=== PATIENT | female | born 1940 | race Caucasian/White ===

== ENCOUNTER → 2018-01-09 | Outpatient (REF) | payer MEDICARE, OTHER ==
[2018-01-09 20:19] LABS: BACTERIA, URINE LARGE AMOUNT; MUCUS, URINE SMALL AMOUNT (NEGATIVE); RBC, URINE 0-1 /hpf (0-3); RENAL EPITHELIAL CELLS, URINE SMALL AMOUNT /hpf
[2018-01-09 20:20] LABS: TRANSITIONAL EPI CELLS, URINE SMALL AMOUNT /hpf
[2018-01-09 20:22] LABS: SQUAMOUS EPITHELIAL CELL URINE MOD AMOUNT /hpf (SMALL AMT)
[2018-01-09 20:24] LABS: HYALINE CAST, URINE NONE SEEN /lpf (0-1); MICROSCOPIC EXAM PERFORMED
== END ==
LOC: M SMT 17:06
DX: R32 Unspecified urinary incontinence (principal)
CPT/HCPCS: 81015

== ENCOUNTER 2019-02-12 17:53 | Emergency (ER) | payer MEDICARE, OTHER ==
[~2019-02-12] VITALS: Ht 165.1 cm; Wt 86.4 kg
[~2019-02-12 17:53] MED LIST: ACET500C PO; ACET500T15 PO; AMLO10TA PO; BETO0.25 OD; BIMA01SOL OU; BRIM1OPD OS; CRES20TA2 PO; DORZ2SOL5 OS; DRIS50003 PO; FLEEENE4 PR; FLUT1SPR2; FOSA70TA PO; GLUC1KIT SQ; GLUC4CHW19 PO; GLYB-147 PO; IBUP200T45 PO; INSUDET SC; INSUH10VL SC; INSUH10VL SQ; INSULANT SC; LEVO25TA5 PO; LEVO88TA3 PO; MILK120011 PO; MYLASUS16 PO; NYST1POW9 TOP; SENO8.6T5 PO; SYST1SOL OU; TYLE650T30 PO
[2019-02-12] MEDS ORDERED: POTA10TA14 PO (18:47)
[2019-02-12] MEDS ORDERED: ATOR40TA75 PO (18:47)
[2019-02-12] MEDS ORDERED: TRAZ-252 PO (18:47)
[2019-02-12] MEDS ORDERED: LANTINJ4 SC (18:47)
[2019-02-12] MEDS ORDERED: TIMO0.5S39 OU (18:47)
[2019-02-12] MEDS ORDERED: METF500T13 PO (18:47)
[2019-02-12] MEDS ORDERED: FURO20TA2 PO (18:47)
[2019-02-12] MEDS ORDERED: COLA100C5 PO (18:47)
[2019-02-12] MEDS ORDERED: LOPE2TAB11 PO (18:47)
[2019-02-12] MEDS ORDERED: INSULANT SC (18:47)
[2019-02-12] MEDS ORDERED: HYDR-643 PO (18:47)
[2019-02-12] MEDS ORDERED: CITA10TA6 PO (18:47)
[2019-02-12] MEDS ORDERED: OXYB5TAB PO (18:47)
[2019-02-12 20:42] LABS: BASO # 0.1 10^3/uL (0.0-0.2); BASO % 0.5 % (0.0-1.0); EOS # 0.2 10^3/uL (0.0-0.50); EOS % 2.4 % (0.0-3.0); HEMATOCRIT 39.6 % (36.0-47.0); HEMOGLOBIN 12.9 g/dl (12.0-15.5); LYMPH # 2.6 10^3/uL (1.5-4.5); LYMPH % 27.5 % (24.0-44.0); MEAN CORPUSCULAR HEMOGLOBIN 28.3 pg (27.0-33.0); MEAN CORPUSCULAR HGB CONC 32.6 g/dl (32.0-36.5); MEAN CORPUSCULAR VOLUME 86.8 fl (80.0-96.0); MONO # 0.5 10^3/uL (0.0-0.8); MONO % 5.6 % (0.0-5.0); NEUTROPHILS % 63.7 % (36.0-66.0); PLATELET COUNT, AUTOMATED 233 10^3/uL (150-450); RED BLOOD COUNT 4.56 10^6/uL (4.00-5.40); WHITE BLOOD COUNT 9.5 10^3/uL (4.0-10.0)
[2019-02-12] MEDS ORDERED: NS 1,000 ML IV ONE (20:45)
[2019-02-12 20:52] LABS: INR 1.95; PROTHROMBIN TIME 22.6 SECONDS (12.1-14.4)
[2019-02-12 20:53] LABS: PARTIAL THROMBOPLASTIN TIME 45.2 SECONDS (25.4-37.6)
[2019-02-12 21:02] LABS: ALBUMIN 3.3 GM/DL (3.2-5.2); BILIRUBIN,DIRECT 0.2 MG/DL (0.0-0.2); BILIRUBIN,TOTAL 0.7 MG/DL (0.2-1.0); CALCIUM LEVEL 8.3 MG/DL (8.8-10.2); CREATININE FOR GFR 1.44 MG/DL (0.55-1.30); GLOMERULAR FILTRATION RATE 37.6 (>39); MB/CK RELATIVE INDEX 2.44 (< OR =4); POTASSIUM SERUM 3.9 MEQ/L (3.5-5.1); TOTAL PROTEIN 6.9 GM/DL (6.4-8.2); TROPONIN I 0.03 NG/ML (< 0.10)
[2019-02-12] MEDS ORDERED: ISOVUE-370 76% 100ML VIAL (Q9967) As Ordered ONE (21:10)
--- NOTE | 2019-02-12 22:17 | REP ---
Clinical: Acute chest pain. Technique: Axial contrast enhanced images from the thoracic inlet to the upper abdomen using 100 ml Isovue 370 intravenous contrast material with coronal and sagittal re-formations. Findings: Satisfactory enhancement of the pulmonary vasculature is achieved and no filling defects are identified to suggest pulmonary embolus. [id number] bilateral pleural effusions with passive atelectasis to the right and left lower lobes as well as scattered ill-defined linear atelectasis/consolidations in the left lower lobe and lingula. Mild cardiomegaly. No pericardial effusion. Thoracic aorta without aneurysm or dissection. No significant adenopathy. No pneumothorax. Musculoskeletal structures without focal osseous abnormality. Impression: 1. No evidence for pulmonary embolus. 2. Moderate/large bilateral pleural effusions (left greater than right) with scattered atelectasis/ill-defined consolidations involving lower lobes and lingula. Electronically Signed by Jeff Dong MD 02/12/2019 10:08 P
--- NOTE | 2019-02-12 22:21 | REP ---
Clinical: Abdominal pain. Technique: Axial contrast enhanced images from the lung bases to the pubic symphysis using 100 ml Isovue 370 intravenous contrast material with coronal and sagittal re-formations. Findings: Lrzwtnyl-[id number]-[id number] bilateral pleural effusions (left greater than right) bibasilar atelectasis/partial collapse. Liver demonstrates hypodense and hyperdense lesions with irregular peripheral enhancement suggesting multiple hemangiomas. Spleen, pancreas, bilateral adrenal glands are normal. Cholelithiasis suggested without acute cholecystitis. Kidneys demonstrate age-related cortical atrophic change without hydronephrosis. The enteric system is without obstruction or acute inflammatory process. Pelvis demonstrates normal bladder and age-appropriate uterus/adnexa. No ascites. No free air. No adenopathy. Abdominal aorta without aneurysm or dissection. 4.3 cm fat containing periumbilical hernia identified. Musculoskeletal structures demonstrate degenerative changes without focal osseous abnormality. Impression: 1. No obvious acute abdominopelvic pathology appreciated. 2. 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 Consider outpatient follow-up ultrasound examination. 3. Cholelithiasis. 4. 4.3 cm fat containing periumbilical hernia. 5. Bilateral pleural effusions and bibasilar atelectasis/partial collapse (left greater than right). Electronically Signed by Jeff Dong MD 02/12/2019 10:13 P
[2019-02-12 23:25] VITALS: BP 116/64
--- NOTE | 2019-02-13 06:09 | ECGEPIP ---
[facility] - ED Test Date: 2019-02-12 Pat Name: LONNIE BERKOWITZ Department: Room: - Gender: Female Trash Man: ADELINERACH : 1940 Requested By: REED Villela Order Number: [id number] Reading MD: David Pascal Measurements Intervals [place] Rate: 88 P: 56 AL: 126 QRS: 56 QRSD: 100 T: QT: 416 QTc: 504 Interpretive Statements SINUS RHYTHM POSSIBLE LEFT ATRIAL ENLARGEMENT POSSIBLE PRIOR INFERIOR INFARCT NSTTW ABNORMALITIES Electronically Signed on 02-13-2019 6:09:14 EDT by David Pascal
--- NOTE | 2019-02-14 07:59 | ED PDOC ---
Post-Departure Follow-Up dr herr faxed formal report of ct abd/p , cta chest for fu.Nabila Aviles MD Feb 14, 2019 07:59
== END 2019-02-12 23:32 | disposition home or self-care (01) ==
LOC: M ED 17:53
DX: J90 Pleural effusion, not elsewhere classified (principal); K74.60 Unspecified cirrhosis of liver; E11.9 Type 2 diabetes mellitus without complications; I10 Essential (primary) hypertension; J44.9 Chronic obstructive pulmonary disease, unspecified; F41.9 Anxiety disorder, unspecified; E78.00 Pure hypercholesterolemia, unspecified; E03.9 Hypothyroidism, unspecified; Z79.899 Other long term (current) drug therapy; Z79.4 Long term (current) use of insulin
CPT/HCPCS: 71275; 74177; 80048; 80076; 82550; 82553; 83690; 84484; 85025; 85610; 85730; 87040; 93005; 93041; 96360; 96361; 99285; Q9967

== ENCOUNTER → 2019-03-04 | Outpatient (CLI) | payer MEDICARE, OTHER ==
[~2019-03-04] MED LIST changes: +ATOR40TA75 PO; +CITA10TA6 PO; +COLA100C5 PO; +FURO20TA2 PO; +HYDR-643 PO; +LANTINJ4 SC; +LOPE2TAB11 PO; +METF500T13 PO; +OXYB5TAB PO; +POTA10TA14 PO; +TIMO0.5S39 OU; +TRAZ-252 PO
--- NOTE | 2019-03-04 12:12 | REP ---
PA and lateral chest: Comparison is 02/05/2015. There is a left pleural effusion as an interval change. There is minor atelectasis inferiorly in the left lung above the effusion. The right lung is clear. Cardiac size is upper normal. The amber and mediastinum are unremarkable. The tip of a metallic yumiko is identified in the visualized portion of the right humeral head and neck. Impression: New left pleural effusion. Metallic yumiko in the right proximal humerus. Electronically Signed by Scottie Arroyo MD 03/04/2019 12:04 P
[2019-03-04 17:24] LABS: ALBUMIN 3.7 GM/DL (3.2-5.2); BILIRUBIN,TOTAL 0.6 MG/DL (0.2-1.0); CALCIUM LEVEL 8.8 MG/DL (8.8-10.2); CREATININE FOR GFR 1.64 MG/DL (0.55-1.30); GLOMERULAR FILTRATION RATE 32.3 (>39); POTASSIUM SERUM 4.8 MEQ/L (3.5-5.1); THYROID STIMULATING HORMONE 1.77 uIU/ML (0.358-3.740); TOTAL PROTEIN 7.2 GM/DL (6.4-8.2)
[2019-03-04 17:36] LABS: HEMATOCRIT 38.3 % (36.0-47.0); HEMOGLOBIN 12.1 g/dl (12.0-15.5); MEAN CORPUSCULAR HEMOGLOBIN 27.5 pg (27.0-33.0); MEAN CORPUSCULAR HGB CONC 31.6 g/dl (32.0-36.5); PLATELET COUNT, AUTOMATED 283 10^3/uL (150-450); WHITE BLOOD COUNT 9.8 10^3/uL (4.0-10.0)
== END ==
LOC: M WUC 11:09
PROVIDERS: ATTEND Internal Medicine
DX: E11.9 Type 2 diabetes mellitus without complications (principal); E03.9 Hypothyroidism, unspecified; I50.22 Chronic systolic (congestive) heart failure; J90 Pleural effusion, not elsewhere classified

== ENCOUNTER → 2019-06-15 | Outpatient (CLI) | payer MEDICARE, OTHER ==
[~2019-06-15] MED LIST changes: -LOPE2TAB11 PO; +LOPE2TAB12 PO; -OXYB5TAB PO; +OXYB5TAB2 PO
[2019-06-15 20:13] LABS: HEMATOCRIT 35.2 % (36.0-47.0); HEMOGLOBIN 10.9 g/dl (12.0-15.5); MEAN CORPUSCULAR HEMOGLOBIN 27.2 pg (27.0-33.0); MEAN CORPUSCULAR VOLUME 87.8 fl (80.0-96.0); PLATELET COUNT, AUTOMATED 364 10^3/uL (150-450); RED BLOOD COUNT 4.01 10^6/uL (4.00-5.40); WHITE BLOOD COUNT 8.1 10^3/uL (4.0-10.0)
[2019-06-15 20:30] LABS: ALBUMIN 2.8 GM/DL (3.2-5.2); BILIRUBIN,TOTAL 0.6 MG/DL (0.2-1.0); CREATININE FOR GFR 1.31 MG/DL (0.55-1.30); GLOMERULAR FILTRATION RATE 41.9 (>39); POTASSIUM SERUM 4.7 MEQ/L (3.5-5.1); THYROID STIMULATING HORMONE 0.126 uIU/ML (0.358-3.740); TOTAL PROTEIN 6.2 GM/DL (6.4-8.2)
== END ==
LOC: M WUC 16:28
PROVIDERS: ATTEND Internal Medicine
DX: R53.83 Other fatigue (principal); E03.9 Hypothyroidism, unspecified; E11.9 Type 2 diabetes mellitus without complications; Z79.899 Other long term (current) drug therapy; I35.0 Nonrheumatic aortic (valve) stenosis

== ENCOUNTER → 2019-06-15 | Outpatient (CLI) | payer MEDICARE, OTHER ==
[2019-06-15 20:18] LABS: CALCIUM LEVEL 8.3 MG/DL (8.8-10.2); CREATININE FOR GFR 1.3 MG/DL (0.55-1.30); GLOMERULAR FILTRATION RATE 42.3 (>39); POTASSIUM SERUM 4.7 MEQ/L (3.5-5.1)
== END ==
LOC: M WUC 16:17
PROVIDERS: ATTEND Nurse Practitioner Family
DX: I35.0 Nonrheumatic aortic (valve) stenosis (principal)

== ENCOUNTER → 2019-06-30 | Outpatient (CLI) | payer MEDICARE, OTHER ==
--- NOTE | 2019-07-01 12:58 | REP ---
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 Comparisons: Comparison CT study February 12, 2019. Comparison CT chest study June 16, 2019. TECHNIQUE: 59 minutes following the intravenous injection of a 7.44 mCi dose of F-18 FDG, three-dimensional PET scintigraphy is acquired from the skull base to the proximal thighs. Triplanar noncontrast CT scanning is acquired through the same anatomic range for attenuation correction, and image registration with scan parameters optimized to minimize radiation exposure to the patient. PET scintigraphy and CT datasets were fused and displayed on a workstation with multiplanar and projection display capability. PET/CT Findings: Head and neck soft tissues are unremarkable. There are small to moderate bilateral pleural effusions, left greater than right. Extensive coronary artery vascular calcifications noted. No abnormal hypermetabolic uptake is seen within the thorax. No hypermetabolic pleural or maritza uptake is seen. There is some atelectasis in each lung base. There is linear discoid atelectasis in the left upper lobe without hypermetabolic uptake. No abnormal hypermetabolic uptake is seen within the liver. The accompanying noncontrast CT study shows a low density 3.5 cm lesion in the right lobe which does not show hypermetabolic uptake, maximum standard uptake value is less than background normal liver uptake 3.51. Maximum standard uptake value is 3.78 at the site of the smaller low density lesion in the dome of the right lobe. The lesion in the pericaval region of the right lobe of the liver is similarly not metabolically active, SUV 3.58. No hypermetabolic abnormal hepatic uptake. There is no abnormal uptake in the pancreas on PET scintigraphy. There is a portacaval lymph node which is not metabolically active, 0.9 cm in short axis dimension unchanged from February 12, 2019. No retroperitoneal adenopathy or hypermetabolic uptake is seen. There is a ventral hernia. No abnormal pelvic uptake is seen. Impression: There is no abnormal hepatic or pancreatic hypermetabolic uptake. No abnormal maritza uptake is seen. Moderate bilateral pleural effusions are noted. Electronically Signed by Jeremy Hu MD 07/01/2019 01:49 P
== END ==
LOC: M PLARAD 15:06
PROVIDERS: ATTEND Family Medicine
DX: D35.6 Benign neoplasm of aortic body and other paraganglia (principal); C25.9 Malignant neoplasm of pancreas, unspecified
CPT/HCPCS: 78815; A9552

== ENCOUNTER → 2019-08-03 | Outpatient (CLI) | payer MEDICARE, OTHER ==
[2019-08-03 18:01] LABS: CREATININE FOR GFR 1.37 MG/DL (0.55-1.30); GLOMERULAR FILTRATION RATE 39.8 (>39)
== END ==
LOC: M WUC 14:37
PROVIDERS: ATTEND Internal Medicine
DX: K76.9 Liver disease, unspecified (principal); R19.09 Other intra-abdominal and pelvic swelling, mass and lump

== ENCOUNTER → 2019-08-03 | Outpatient (CLI) | payer MEDICARE, OTHER ==
[2019-08-03 17:59] LABS: CALCIUM LEVEL 8.8 MG/DL (8.8-10.2); CREATININE FOR GFR 1.36 MG/DL (0.55-1.30); DIGOXIN LEVEL 1.1 NG/ML (0.5-2.0); GLOMERULAR FILTRATION RATE 40.1 (>39); POTASSIUM SERUM 4.3 MEQ/L (3.5-5.1)
== END ==
LOC: M WUC 14:32
PROVIDERS: ATTEND Internal Medicine
DX: Z79.899 Other long term (current) drug therapy (principal); K76.9 Liver disease, unspecified; R19.09 Other intra-abdominal and pelvic swelling, mass and lump

== ENCOUNTER → 2019-08-04 | Outpatient (CLI) | payer MEDICARE, OTHER ==
[~2019-08-04] MED LIST changes: +ISOVUE-370 76% 100ML VIAL (Q9967) As Ordered ONE
--- NOTE | 2019-08-04 12:35 | REP ---
CT ABDOMEN AND PELVIS WITHOUT AND WITH IV CONTRAST: WITHOUT ORAL CONTRAST. HISTORY: Liver disease. Swelling. CT CONTRAST DOSE: 100 mL of intravenous Isovue-370 is administered. COMPARISON: CT study February 12, 2019. Comparison PET-CT, June 30, 2019. Comparison chest CT, February 05, 2015. CT FINDINGS: Digital preliminary drawing box tender radiograph is unremarkable. Normal bowel gas pattern is seen. There are small to moderate bilateral pleural effusions, left larger than right again noted. These are similar to the February 12, 2019 prior effusions. Multiple low-density liver lesions are observed. These are most conspicuous on the precontrast study. In the right lobe, there are 3.7 and 4.0 cm low density lesions. There are two different 1.1 cm nodules in the left lobe. There is a 2.1 cm right lobe nodule high at the dome of the diaphragm. These demonstrate peripheral vascular enhancement pattern and may be hemangiomas. The CT study from February 05, 2015 demonstrates large left and right lobe lesions which have regressed somewhat since the 2014 study. The left lobe lesion, which was quite large in 2014, is not seen. No splenic lesion is appreciated. There is no evidence of ascites or adrenal lesion. No pancreatic abnormality is noted. There is a fluid-fluid level in the gallbladder consistent with gravel-like calculi or mineralized sludge in the gallbladder. The kidneys enhance symmetrically and are morphologically intact. No retroperitoneal mass or adenopathy is seen. There is a periumbilical ventral hernia transmitting abdominal fat. Small and large bowel loops are unremarkable. IMPRESSION: 1. Bilateral pleural effusions, left greater than right. 2. Multiple low-density hypervascular liver lesions which may be hemangiomas. The three largest of these have regressed since the 2014 prior study. 3. Periumbilical ventral hernia transmitting abdominal fat. Electronically Signed by Jeremy Hu MD 08/04/2019 03:35 P
== END ==
LOC: M RAD 09:31
PROVIDERS: ATTEND Internal Medicine
DX: R19.09 Other intra-abdominal and pelvic swelling, mass and lump (principal); K76.9 Liver disease, unspecified
CPT/HCPCS: 74170; Q9967

== ENCOUNTER → 2019-11-17 | Outpatient (REF) | payer MEDICARE, OTHER ==
[~2019-11-17] MED LIST changes: -ISOVUE-370 76% 100ML VIAL (Q9967) As Ordered ONE; +OXYB-54 PO; -OXYB5TAB2 PO
== END ==
LOC: M LAB REF 16:00
PROVIDERS: ATTEND Nurse Practitioner Family
DX: R30.0 Dysuria (principal)

== ENCOUNTER → 2019-11-23 | Outpatient (CLI) | payer MEDICARE, OTHER ==
[2019-11-23 17:31] LABS: ALBUMIN 3.6 GM/DL (3.2-5.2); CALCIUM LEVEL 9.3 MG/DL (8.8-10.2); CREATININE FOR GFR 1.49 MG/DL (0.55-1.30); GLOMERULAR FILTRATION RATE 36.1 (>39); MAGNESIUM LEVEL 2.8 MG/DL (1.8-2.4); POTASSIUM SERUM 4.7 MEQ/L (3.5-5.1)
== END ==
LOC: M WUC 10:45
PROVIDERS: ATTEND Internal Medicine Cardiovascular Disease
DX: I50.42 Chronic combined systolic (congestive) and diastolic (congestive) heart failure (principal)

== ENCOUNTER → 2019-12-01 | Outpatient (REF) | payer MEDICARE, OTHER | LOC: M LAB REF 16:23 | PROVIDERS: ATTEND Internal Medicine | DX: N39.0 Urinary tract infection, site not specified (principal) ==

== ENCOUNTER → 2020-02-11 | Outpatient (CLI) | payer MEDICARE, OTHER ==
[2020-02-11 20:10] LABS: BASO % 0.5 % (0.0-1.0); EOS # 0.2 10^3/uL (0.0-0.5); EOS % 2.5 % (0.0-3.0); HEMOGLOBIN 12.1 g/dl (12.0-15.5); MEAN CORPUSCULAR HEMOGLOBIN 29.4 pg (27.0-33.0); MEAN CORPUSCULAR HGB CONC 33.6 g/dl (32.0-36.5); MEAN CORPUSCULAR VOLUME 87.4 fl (80.0-96.0); MONO # 0.5 10^3/uL (0.0-0.8); MONO % 5.8 % (0.0-5.0); NEUTROPHILS # 5.8 10^3/uL (1.5-8.5); PLATELET COUNT, AUTOMATED 199 10^3/uL (150-450); RED BLOOD COUNT 4.12 10^6/uL (4.00-5.40); WHITE BLOOD COUNT 8.5 10^3/uL (4.0-10.0)
[2020-02-11 21:01] LABS: ALBUMIN 3.4 GM/DL (3.2-5.2); BILIRUBIN,TOTAL 0.3 MG/DL (0.2-1.0); CALCIUM LEVEL 8.8 MG/DL (8.8-10.2); CREATININE FOR GFR 1.6 MG/DL (0.55-1.30); DIGOXIN LEVEL 1.5 NG/ML (0.5-2.0); GLOMERULAR FILTRATION RATE 33.2 (>39); THYROID STIMULATING HORMONE 0.369 uIU/ML (0.358-3.740); TOTAL PROTEIN 6.6 GM/DL (6.4-8.2)
[2020-02-11 21:38] LABS: HEMOGLOBIN A1c 9.6 %
== END ==
LOC: M WUC 15:10
PROVIDERS: ATTEND Internal Medicine
DX: E11.9 Type 2 diabetes mellitus without complications (principal); Z79.899 Other long term (current) drug therapy

== ENCOUNTER → 2020-05-02 | Outpatient (REF) | payer MEDICARE, OTHER ==
[2020-06-18 21:11] LABS: BASO % 0.4 % (0.0-1.0); EOS # 0.2 10^3/uL (0.0-0.5); EOS % 2.3 % (0.0-3.0); HEMATOCRIT 34.5 % (36.0-47.0); HEMOGLOBIN 11.2 g/dl (12.0-15.5); LYMPH # 1.9 10^3/uL (1.5-5.0); LYMPH % 19.3 % (24.0-44.0); MEAN CORPUSCULAR HEMOGLOBIN 29.3 pg (27.0-33.0); MEAN CORPUSCULAR HGB CONC 32.5 g/dl (32.0-36.5); MEAN CORPUSCULAR VOLUME 90.3 fl (80.0-96.0); MONO # 0.6 10^3/uL (0.0-0.8); NEUTROPHILS # 6.9 10^3/uL (1.5-8.5); NEUTROPHILS % 71.7 % (36.0-66.0); PLATELET COUNT, AUTOMATED 172 10^3/uL (150-450); RED BLOOD COUNT 3.82 10^6/uL (4.00-5.40); WHITE BLOOD COUNT 9.7 10^3/uL (4.0-10.0)
[2020-06-27 23:53] LABS: ALBUMIN 3.4 GM/DL (3.2-5.2); CALCIUM LEVEL 9.1 MG/DL (8.8-10.2); CREATININE FOR GFR 1.68 MG/DL (0.55-1.30); GLOMERULAR FILTRATION RATE 31.4 (>39); MAGNESIUM LEVEL 2.2 MG/DL (1.8-2.4); POTASSIUM SERUM 4.9 MEQ/L (3.5-5.1)
== END ==
LOC: M LABWUC 12:46
PROVIDERS: ATTEND Internal Medicine Cardiovascular Disease
DX: I50.42 Chronic combined systolic (congestive) and diastolic (congestive) heart failure (principal)

== ENCOUNTER → 2020-08-10 | Outpatient (CLI) | payer MEDICARE, OTHER | LOC: M WUC 15:05 | PROVIDERS: ATTEND Internal Medicine | DX: R30.0 Dysuria (principal) ==

== ENCOUNTER → 2021-06-07 | Outpatient (REF) | payer MEDICARE, OTHER ==
[~2021-06-07] MED LIST changes: -GLUC4CHW19 PO; +SFHGLU4TA PO
[2021-06-07 17:36] LABS: HEMATOCRIT 37.7 % (36.0-47.0); HEMOGLOBIN 12.1 g/dl (12.0-15.5); MEAN CORPUSCULAR HEMOGLOBIN 28.5 pg (27.0-33.0); MEAN CORPUSCULAR HGB CONC 32.1 g/dl (32.0-36.5); MEAN CORPUSCULAR VOLUME 88.9 fl (80.0-96.0); PLATELET COUNT, AUTOMATED 202 10^3/uL (150-450); RED BLOOD COUNT 4.24 10^6/uL (4.00-5.40); WHITE BLOOD COUNT 9.7 10^3/uL (4.0-10.0)
[2021-06-07 17:59] LABS: ALBUMIN 3.3 GM/DL (3.2-5.2); BILIRUBIN,TOTAL 0.4 MG/DL (0.2-1.0); CALCIUM LEVEL 8.7 MG/DL (8.8-10.2); CHOLESTEROL RISK RATIO 5.538 (<5); CREATININE FOR GFR 1.81 MG/DL (0.55-1.30); FREE T4 0.98 NG/DL (0.76-1.46); GLOMERULAR FILTRATION RATE 28.7 (>39); POTASSIUM SERUM 4.7 MEQ/L (3.5-5.1); THYROID STIMULATING HORMONE 0.148 uIU/ML (0.358-3.740); TOTAL PROTEIN 6.6 GM/DL (6.4-8.2)
[2021-06-07 18:25] LABS: HEMOGLOBIN A1c 7.2 %
== END ==
LOC: M LAB REF 17:02
PROVIDERS: ATTEND Internal Medicine
DX: E03.9 Hypothyroidism, unspecified (principal); E11.9 Type 2 diabetes mellitus without complications; Z79.899 Other long term (current) drug therapy